=== PATIENT | female | born 1995 | race Caucasian/White ===

== ENCOUNTER 2016-10-23 10:49 | Observation (INO) | payer OTHER ==
[2016-10-23] MEDS ORDERED: NS 1,000 ML IV ONE (11:20)
--- NOTE | 2016-10-23 11:20 | EDPHY ---
H & P Time Seen by Provider: 10/23/16 11:20 HPI/ROS: Chief complaint. Post tonsillectomy bleeding HPI. 21-year-old female with tonsillectomy 12 days ago with bleeding that began this morning. She has had bleeding in the past couple of days. She saw Dr. Farris yesterday though the bleeding had stopped. However last night and then this morning bleeding continued. She is bleeding quite a bit at this point. ROS Constitutional. no fever/chills, no weakness Eyes. no problems with vision ENT. Bleeding from throat Cardiovascular. no chest pain Respiratory. no shortness of breath, no cough Abdominal. no abdominal pain, no nausea/vomiting, no diarrhea . no problems urinating MS. no calf pain/swelling, no neck/back pain, no joint pain Skin. no rash Lymph. no swollen glands Neuro. no headache, no dizziness, no difficulty walking or with speech Past Medical/Surgical History: Past medical history orthostatic hypotension, Luke multiple orthopedic surgeries , UTI Social History: Single, nonsmoker, no alcohol Smoking Status: Never smoked Physical Exam: General Appearance: Alert well-developed female moderate distress with copious bleeding from mouth. Vital signs show mild tachycardia Eyes: Pupils equal and round no pallor or injection. ENT, active lip bleeding from left tonsillar pharyngeal area. Exact source is not identified Respiratory: There are no retractions, lungs are clear to auscultation. Cardiovascular: Regular rate and rhythm. Gastrointestinal: Abdomen is soft and nontender, no masses, bowel sounds normal. Neurological: Awake and alert, sensory and motor exams grossly normal. Skin: Warm and dry, no rashes. Musculoskeletal: Neck is supple nontender. Extremities symmetrical, full range of motion. Psychiatric: Patient is oriented X 3, there is no agitation. Constitutional: Initial Vital Signs Heart Rate 104 H 10/23/16 10:56 Respiratory Rate 16 10/23/16 10:56 Blood Pressure 121/96 H 10/23/16 10:56 O2 Sat (%) 96 10/23/16 10:56 O2 Delivery Mode Room Air Allergies/Adverse Reactions: No Known Allergies Allergy (Unverified 02/15/16 17:03) Home Medications: Medication Instructions Recorded Albuterol [Proventil Inhaler HFA 1 - 2 puffs IH Q4H PRN 10/23/16 (*)] FLUDROCORTISONE ACETATE 0.1 mg PO HS 10/23/16 Ibuprofen [Motrin (*)] 400 mg PO Q8 PRN 10/23/16 Levonorgestrel-Ethin Estradiol 1 each PO HS 10/23/16 [Levora-28 Tablet] Medical Decision Making Procedures: IV normal saline, monitor, suction ED Course/Re-evaluation: I consulted and discussed case with Dr. Rod, ENT, who sees the patient in the emergency department. He takes the patient to surgery Parents, patient and I discussed likely need for surgery before Dr. Rod arrive. They expressed understanding and agreement Differential Diagnosis: Apparent post tonsillectomy bleeding. Could be from scab retraction, arterial bleeding. I also considered hypovolemia - Data Points Laboratory Results: Laboratory Results 10/23/16 11:10 10/23/16 11:10 10/23/16 10/23/16 10/23/16 11:10 11:10 11:10 WBC RBC Hgb Hct MCV MCH MCHC RDW Plt Count MPV Neut % (Auto) Lymph % (Auto) Nobles % (Auto) Eos % (Auto) Baso % (Auto) Nucleat RBC Rel Count Absolute Neuts (auto) Absolute Lymphs (auto) Absolute Monos (auto) Absolute Eos (auto) Absolute Basos (auto) Absolute Nucleated RBC Immature Gran % Immature Gran # PT 13.3 SEC SEC (12.0-15.0) INR 1.02 (0.83-1.16) APTT 32.5 SEC SEC (23.0-38.0) Sodium 140 mEq/L mEq/L (134-144) Potassium 3.9 mEq/L mEq/L (3.5-5.2) Chloride 105 mEq/L mEq/L (97-110) Carbon Dioxide 20 mEq/l L mEq/l (22-31) Anion Gap 15 mEq/L mEq/L (8-16) BUN 10 mg/dL mg/dL (7-23) Creatinine 0.7 mg/dL mg/dL (0.6-1.0) Estimated GFR > 60 Glucose 78 mg/dL mg/dL (70-100) Calcium 10.2 mg/dL mg/dL (8.5-10.4) Beta HCG, Qual NEGATIVE 10/23/16 11:10 WBC 11.53 10^3/uL H 10^3/uL (3.80-9.50) RBC 4.98 10^6/uL 10^6/uL (4.18-5.33) Hgb 13.6 g/dL g/dL (12.6-16.3) Hct 41.3 % % (38.0-47.0) MCV 82.9 fL fL (81.5-99.8) MCH 27.3 pg L pg (27.9-34.1) MCHC 32.9 g/dL g/dL (32.4-36.7) RDW 13.7 % % (11.5-15.2) Plt Count 437 10^3/uL H 10^3/uL (150-400) MPV 9.9 fL fL (8.7-11.7) Neut % (Auto) 64.6 % % (39.3-74.2) Lymph % (Auto) 28.7 % % (15.0-45.0) Nobles % (Auto) 4.3 % L % (4.5-13.0) Eos % (Auto) 1.1 % % (0.6-7.6) Baso % (Auto) 1.0 % % (0.3-1.7) Nucleat RBC Rel Count 0.0 % % (0.0-0.2) Absolute Neuts (auto) 7.45 10^3/uL H 10^3/uL (1.70-6.50) Absolute Lymphs (auto) 3.31 10^3/uL H 10^3/uL (1.00-3.00) Absolute Monos (auto) 0.50 10^3/uL 10^3/uL (0.30-0.80) Absolute Eos (auto) 0.13 10^3/uL 10^3/uL (0.03-0.40) Absolute Basos (auto) 0.11 10^3/uL H 10^3/uL (0.02-0.10) Absolute Nucleated RBC 0.00 10^3/uL 10^3/uL (0-0.01) Immature Gran % 0.3 % % (0.0-1.1) Immature Gran # 0.03 10^3/uL 10^3/uL (0.00-0.10) PT INR APTT Sodium Potassium Chloride Carbon Dioxide Anion Gap BUN Creatinine Estimated GFR Glucose Calcium Beta HCG, Qual Medications Given: Discontinued Medications Sodium Chloride (Ns) 1,000 mls @ 0 mls/hr IV ONCE ONE PRN Reason: Wide Open Stop: 10/23/16 11:21 Last Admin: 10/23/16 11:28 Dose: 1,000 mls Departure - Departure Disposition: [facility] Inpatient Acute Clinical Impression: Post tonsillectomy secondary hemorrhage Condition: Fair
[2016-10-23 11:23] LABS: % IMMATURE GRANULYOCYTES 0.3 % (0.0-1.1); ABSOLUTE IMMATURE GRANULOCYTES 0.03 10^3/uL (0.00-0.10); ADD DIFF? NO; ADD MORPH? NO; ADD SCAN? NO; ATYPICAL LYMPHOCYTE FLAG 10 (0-99); FRAGMENT RBC FLAG 0 (0-99); HEMATOCRIT 41.3 % (38.0-47.0); HEMOGLOBIN 13.6 g/dL (12.6-16.3); LEFT SHIFT FLG 0 (0-99); LIPEMIA HEMOLYSIS FLAG 80 (0-99); MEAN CELL HEMOGLOBIN 27.3 pg (27.9-34.1); MEAN CELL HEMOGLOBIN CONCENTR. 32.9 g/dL (32.4-36.7); MEAN CELL VOLUME 82.9 fL (81.5-99.8); MEAN PLATELET VOLUME 9.9 fL (8.7-11.7); PLATELET CLUMPS FLAG 10 (0-99); PLATELET COUNT 437 10^3/uL (150-400); RED BLOOD CELL COUNT 4.98 10^6/uL (4.18-5.33); RED CELL DISTRIBUTION WIDTH 13.7 % (11.5-15.2)
[2016-10-23 11:35] LABS: ANION GAP 15 mEq/L (8-16); CALCIUM 10.2 mg/dL (8.5-10.4); CARBON DIOXIDE 20 mEq/l (22-31); CHLORIDE 105 mEq/L (97-110); CREATININE 0.7 mg/dL (0.6-1.0); GLOMERULAR FILTRATION RATE > 60; GLUCOSE 78 mg/dL (70-100); POTASSIUM 3.9 mEq/L (3.5-5.2); SODIUM 140 mEq/L (134-144)
[2016-10-23 11:52] LABS: INR 1.02 (0.83-1.16); PROTIME(PATIENT) 13.3 SEC (12.0-15.0)
[2016-10-23 11:53] LABS: APTT 32.5 SEC (23.0-38.0)
[2016-10-23] MEDS ORDERED: BUPIVACAINE/EPI 0.25% 30 ML SDV ONE (11:54)
[2016-10-23] MEDS ORDERED: SCOPOLAMINE HYDROBROMIDE 1.5 MG PATCH TD ONE (12:08)
[2016-10-23] MEDS ORDERED: fentaNYL 100 MCG/2 ML INJ ONE (12:11)
[2016-10-23] MEDS ORDERED: ONDANSETRON 4 MG/2 ML VIAL ONE (12:11)
[2016-10-23] MEDS ORDERED: DEXAMETHASONE 4 MG/ML VIAL ONE (12:11)
[2016-10-23] MEDS ORDERED: LIDOCAINE 2% 100 MG/5 ML SYR ONE (12:11)
[2016-10-23] MEDS ORDERED: PROPOFOL 200 MG/20 ML VIAL ONE (12:13)
[2016-10-23] MEDS ORDERED: SILVER NITRATE APPLICATOR 1 APPL TP ONE (12:39)
[2016-10-23] MEDS ORDERED: MIDAZOLAM 2 MG/2 ML VIAL ONE (12:54)
[2016-10-23] MEDS ORDERED: ONDANSETRON 4 MG/2 ML VIAL IVP PRN (13:09)
[2016-10-23] MEDS ORDERED: ACETAMINOPHEN 500 MG TAB PO PRN (13:11)
[2016-10-23] MEDS ORDERED: D5W LR 1,000 ML IV SCH (13:15)
--- NOTE | 2016-10-23 13:20 | PDGENHP ---
History and Physical - Chief Complaint Post tonsillectomy bleeding - History of Present Illness The pat is post op day 12 from a tonsillectomy. She kaba had bleeding several times which stopped preior to seeking treatment. She had bleeding again this morning and I asked them to come to the ER. There was brisk bleeding loted on the left side, but I could not see the actual site. The decision was made to go to the OR urgently. PARQ was held with the pt and her mom, the mother signed as the patient was bleeding actively and on the way to the OR. ALL none MEDs: BCP ibuprofen tylenol flucortisone 1mg in the evening PSH: lower limb surgeries x 5 PMH: orthostatic hypotension FH: no known bleeding disorders PE: PT a and O x3 ears nl nose nl OC/OP bleeding from left post tonsillectomy site neck normal Lungs CTA bilaterally COR RRR no audible murmur abd normal ext warm and well prefused LABs hct 41 hgb 13 plt 437 Imp/plan pt with sig bleeding to the or urgently. Of note, she bled usually in the evening shortly after taking her medication for low blood pressure! I asked that they hold it for the next two weeks WBC 11.53 10^3/uL (3.80-9.50) H 10/23/16 11:10 RBC 4.98 10^6/uL (4.18-5.33) 10/23/16 11:10 Hgb 13.6 g/dL (12.6-16.3) 10/23/16 11:10 Hct 41.3 % (38.0-47.0) 10/23/16 11:10 MCV 82.9 fL (81.5-99.8) 10/23/16 11:10 MCH 27.3 pg (27.9-34.1) L 10/23/16 11:10 MCHC 32.9 g/dL (32.4-36.7) 10/23/16 11:10 RDW 13.7 % (11.5-15.2) 10/23/16 11:10 Plt Count 437 10^3/uL (150-400) H 10/23/16 11:10 MPV 9.9 fL (8.7-11.7) 10/23/16 11:10 Neut % (Auto) 64.6 % (39.3-74.2) 10/23/16 11:10 Lymph % (Auto) 28.7 % (15.0-45.0) 10/23/16 11:10 Storey % (Auto) 4.3 % (4.5-13.0) L 10/23/16 11:10 Eos % (Auto) 1.1 % (0.6-7.6) 10/23/16 11:10 Baso % (Auto) 1.0 % (0.3-1.7) 10/23/16 11:10 Nucleat RBC Rel Count 0.0 % (0.0-0.2) 10/23/16 11:10 Absolute Neuts (auto) 7.45 10^3/uL (1.70-6.50) H 10/23/16 11:10 Absolute Lymphs (auto) 3.31 10^3/uL (1.00-3.00) H 10/23/16 11:10 Absolute Monos (auto) 0.50 10^3/uL (0.30-0.80) 10/23/16 11:10 Absolute Eos (auto) 0.13 10^3/uL (0.03-0.40) 10/23/16 11:10 Absolute Basos (auto) 0.11 10^3/uL (0.02-0.10) H 10/23/16 11:10 Absolute Nucleated RBC 0.00 10^3/uL (0-0.01) 10/23/16 11:10 Immature Gran % 0.3 % (0.0-1.1) 10/23/16 11:10 Immature Gran # 0.03 10^3/uL (0.00-0.10) 10/23/16 11:10 PT 13.3 SEC (12.0-15.0) 10/23/16 11:10 INR 1.02 (0.83-1.16) 10/23/16 11:10 APTT 32.5 SEC (23.0-38.0) 10/23/16 11:10 Sodium 140 mEq/L (134-144) 10/23/16 11:10 Potassium 3.9 mEq/L (3.5-5.2) 10/23/16 11:10 Chloride 105 mEq/L (97-110) 10/23/16 11:10 Carbon Dioxide 20 mEq/l (22-31) L 10/23/16 11:10 Anion Gap 15 mEq/L (8-16) 10/23/16 11:10 BUN 10 mg/dL (7-23) 10/23/16 11:10 Creatinine 0.7 mg/dL (0.6-1.0) 10/23/16 11:10 Estimated GFR > 60 10/23/16 11:10 Glucose 78 mg/dL (70-100) 10/23/16 11:10 Calcium 10.2 mg/dL (8.5-10.4) 10/23/16 11:10 Beta HCG, Qual NEGATIVE 10/23/16 11:10 bleeding History Information - Allergies/Home Medication List Allergies/Adverse Reactions: No Known Allergies Allergy (Unverified 02/15/16 17:03) Home Medications: Albuterol Hfa Anes Only [Proair Hfa Icu (*)] 02/15/16 [Last Taken Unknown] FLUDROCORTISONE ACETATE 02/15/16 [Last Taken Unknown] Keflex 02/15/16 [Last Taken Unknown] Ortho Tri-Cyclen 28 Tablet 02/15/16 [Last Taken Unknown] I have personally reviewed and updated: family history (nobleed ing do) - Social History Smoking Status: Never smoked Physical Exam Temp Pulse Resp BP Pulse Ox 106 H 18 121/95 H 96 10/23/16 11:53 10/23/16 11:53 10/23/16 11:53 10/23/16 11:53 Lab Data & Imaging Review 10/23/16 11:10 10/23/16 11:10 WBC 11.53 10^3/uL (3.80-9.50) H 10/23/16 11:10 RBC 4.98 10^6/uL (4.18-5.33) 10/23/16 11:10 Hgb 13.6 g/dL (12.6-16.3) 10/23/16 11:10 Hct 41.3 % (38.0-47.0) 10/23/16 11:10 MCV 82.9 fL (81.5-99.8) 10/23/16 11:10 MCH 27.3 pg (27.9-34.1) L 10/23/16 11:10 MCHC 32.9 g/dL (32.4-36.7) 10/23/16 11:10 RDW 13.7 % (11.5-15.2) 10/23/16 11:10 Plt Count 437 10^3/uL (150-400) H 10/23/16 11:10 MPV 9.9 fL (8.7-11.7) 10/23/16 11:10 Neut % (Auto) 64.6 % (39.3-74.2) 10/23/16 11:10 Lymph % (Auto) 28.7 % (15.0-45.0) 10/23/16 11:10 Storey % (Auto) 4.3 % (4.5-13.0) L 10/23/16 11:10 Eos % (Auto) 1.1 % (0.6-7.6) 10/23/16 11:10 Baso % (Auto) 1.0 % (0.3-1.7) 10/23/16 11:10 Nucleat RBC Rel Count 0.0 % (0.0-0.2) 10/23/16 11:10 Absolute Neuts (auto) 7.45 10^3/uL (1.70-6.50) H 10/23/16 11:10 Absolute Lymphs (auto) 3.31 10^3/uL (1.00-3.00) H 10/23/16 11:10 Absolute Monos (auto) 0.50 10^3/uL (0.30-0.80) 10/23/16 11:10 Absolute Eos (auto) 0.13 10^3/uL (0.03-0.40) 10/23/16 11:10 Absolute Basos (auto) 0.11 10^3/uL (0.02-0.10) H 10/23/16 11:10 Absolute Nucleated RBC 0.00 10^3/uL (0-0.01) 10/23/16 11:10 Immature Gran % 0.3 % (0.0-1.1) 10/23/16 11:10 Immature Gran # 0.03 10^3/uL (0.00-0.10) 10/23/16 11:10 PT 13.3 SEC (12.0-15.0) 10/23/16 11:10 INR 1.02 (0.83-1.16) 10/23/16 11:10 APTT 32.5 SEC (23.0-38.0) 10/23/16 11:10 Sodium 140 mEq/L (134-144) 10/23/16 11:10 Potassium 3.9 mEq/L (3.5-5.2) 10/23/16 11:10 Chloride 105 mEq/L (97-110) 10/23/16 11:10 Carbon Dioxide 20 mEq/l (22-31) L 10/23/16 11:10 Anion Gap 15 mEq/L (8-16) 10/23/16 11:10 BUN 10 mg/dL (7-23) 10/23/16 11:10 Creatinine 0.7 mg/dL (0.6-1.0) 10/23/16 11:10 Estimated GFR > 60 10/23/16 11:10 Glucose 78 mg/dL (70-100) 10/23/16 11:10 Calcium 10.2 mg/dL (8.5-10.4) 10/23/16 11:10 Beta HCG, Qual NEGATIVE 10/23/16 11:10
--- NOTE | 2016-10-23 13:45 | GOP ---
[f rep st] OPERATIVE REPORT DATE OF OPERATION: 10/23/2016 SURGEON: Everton Rod MD ANESTHESIA: General. PREOPERATIVE DIAGNOSIS: Left posttonsillectomy hemorrhage. POSTOPERATIVE DIAGNOSIS: Left posttonsillectomy hemorrhage. PROCEDURE PERFORMED: Examination under anesthesia and control of post tonsillectomy hemorrhage. FINDINGS: The bleeding was from the left anterior tonsillar pillar. There was a small arterial whi ch was actively squirting blood. This was oversewn with two 3-0 chromic sutures in a [id number] fashion with excellent hemostasis. There was a little bit of exposed granulation tissue in the mi d tonsil fossa which was oozing a small amount of blood but certainly not the site of the main bleed ing. This was gently painted with a small amount of silver nitrate which was immediately Dabbed earnest y and then washed off with sterile saline. The gag was released for 7 minutes and reopened; there a re no signs of any bleeding. The right tonsillar fossa is healing very nicely. I suctioned the emily opharynx clear of any secretions and blood. The stomach was then suctioned clear of secretions and blood. I then injected into the deeper tissues of the anterior tonsillar pillar quite anterior to the actua l region of bleeding, 2 cc of 0.25% Marcaine with 1:200,000 of epinephrine, with care being taken to not inject it intravascularly. Another 2 cc was sprayed into both tonsillar fossae to allow a doug le bit of topical anesthesia. This was left for about 15 seconds and then suctioned away. At this point the case was terminated. The anesthetic was discontinued. The patient was extubated and taken to postop care in good condition. She tolerated the procedure well. INDICATIONS: The patient is a 21-year-old woman who is 12 days postop from a tonsillectomy. She kaba s had several brief but brisk bleeding episodes over the last few days. She had bleeding this morni ng which persisted, and I requested them to present to the emergency department for evaluation. On examination in the ER she was found to have persistent bleeding from the left side. I was unable to visualize the bleeding site, and she was brought to the operating room for further evaluation. DESCRIPTION OF PROCEDURE: /[id number]/[id number]
[2016-10-23 14:07] VITALS: RESP 18
[2016-10-23] MEDS ORDERED: ACETAMINOPHEN 650 MG/20.3 ML UDCUP PO PRN (14:49)
[2016-10-23 17:42] VITALS: BP 128/80; PULSE 84; TEMP 99.1; O2SAT 95
== END 2016-10-23 19:26 | disposition home or self-care (01) ==
LOC: F3E 13:53
PROVIDERS: ADMIT Otolaryngology; ATTEND Otolaryngology
PROC: 0W33XZZ Control Bleeding in Oral Cavity and Throat, External Approach (ICD-10-PCS; principal; 2016-10-23 12:12)
DX: K91.840 Postprocedural hemorrhage of a digestive system organ or structure following a digestive system procedure (principal); I95.1 Orthostatic hypotension
CPT/HCPCS: J1100; J2001; J2250; J2405; J2704; J3010